=== PATIENT | male | born 1955 | race Two or more races ===

== ENCOUNTER 2023-06-18 05:12 | Emergency (ER) | payer OTHER ==
[~2023-06-18] VITALS: Ht 175.3 cm; Wt 90.7 kg
[~2023-06-18 05:12] MED LIST: ADVAIR 2501 DISK W/1; AZITHROMYCIN250 MG PO; IBUPROFEN600 MG; METHOCARBAMOL750 MG; OMEPRAZOLE20 M1 PO; OSEL75CA PO; TUSSIONEX PENNKI5 ML PO
[2023-06-18] MEDS ORDERED: GUAIFENESIN/DEXTROMETHORPHAN 100 MG/5 ML ML PO STA (06:47)
[2023-06-18] MEDS ORDERED: KETOROLAC TROMETHAMINE 10 MG TABLET PO STA (06:48)
[2023-06-18] MEDS ORDERED: DIPHENHYDRAMINE HCL 12.5 MG/5 ML BLIST.PACK PO STA (06:48)
[2023-06-18 07:29] LABS: HEMATOCRIT 41.1 % (39.0-48.0); HEMOGLOBIN 13.9 g/dL (13-16.00); MEAN CELL VOLUME 84.5 fL (80.0-100.00); MEAN CORPUSCULAR HEMOGLOBIN 28.7 pg (27.00-32.0); MEAN CORPUSCULAR HGB CONC 33.9 g/dl (32.0-36.0); PLATELET COUNT 170 K/uL (150-450); RED BLOOD COUNT 4.86 M/uL (4.00-6.00); RED CELL DISTRIBUTION WIDTH 13.9 % (11.5-14.5)
[2023-06-18] MEDS ORDERED: CEFTRIAXONE SODIUM 1,000 MG VIAL IM STA (08:17)
== END 2023-06-18 08:32 | disposition home or self-care (01) ==
LOC: ER 05:13
PROVIDERS: General Practice
DX: J32.9 Chronic sinusitis, unspecified (principal); Z88.8 Allergy status to other drugs, medicaments and biological substances; Z20.822 Contact with and (suspected) exposure to COVID-19

== ENCOUNTER 2024-06-05 12:10 | Outpatient (CLI) | payer OTHER, BC | END 2024-06-05 12:21 | disposition home or self-care (01) | LOC: RAD 12:10 | PROVIDERS: ATTEND Anesthesiology | DX: M25.551 Pain in right hip (principal); M16.11 Unilateral primary osteoarthritis, right hip; M25.552 Pain in left hip; M16.12 Unilateral primary osteoarthritis, left hip ==